=== PATIENT | female | born 1990 | race Caucasian/White ===

== ENCOUNTER 2016-10-09 22:32 | Emergency (ER) | payer SELFPAY ==
[2016-10-09 22:49] VITALS: BP 111/68
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
== END 2016-10-10 00:15 | disposition home or self-care (01) ==
LOC: JP.ED 22:32
DX: S80.01XA Contusion of right knee, initial encounter (principal); F32.9 Major depressive disorder, single episode, unspecified; F17.210 Nicotine dependence, cigarettes, uncomplicated; Z88.8 Allergy status to other drugs, medicaments and biological substances; Z90.49 Acquired absence of other specified parts of digestive tract; Z98.51 Tubal ligation status; Z98.890 Other specified postprocedural states; V89.2XXA Person injured in unspecified motor-vehicle accident, traffic, initial encounter
CPT/HCPCS: 99282; 99283

== ENCOUNTER 2022-05-17 18:20 | Emergency (ER) | payer OTHER ==
[2022-05-17 18:31] VITALS: BP 111/73; PULSE 101
== END 2022-05-17 18:57 | disposition home or self-care (01) ==
LOC: JP.ED 18:20
DX: S16.1XXA Strain of muscle, fascia and tendon at neck level, initial encounter (principal); S40.012A Contusion of left shoulder, initial encounter; Z88.8 Allergy status to other drugs, medicaments and biological substances; V47.5XXA Car driver injured in collision with fixed or stationary object in traffic accident, initial encounter; Y92.410 Unspecified street and highway as the place of occurrence of the external cause
CPT/HCPCS: 99284